=== PATIENT | female | born 1935 | race Caucasian/White ===

== ENCOUNTER 2019-12-01 18:02 | Emergency (ER) | payer MEDICARE, OTHER ==
[~2019-12-01] VITALS: Ht 152.4 cm; Wt 79.8 kg
[~2019-12-01 18:02] MED LIST: BACTRIM DS TAB1 EAC1 ORAL; KEFLEX500 MG ORAL; [UNRECOGNIZED DRUG - OTHER] PO
--- NOTE | 2019-12-01 18:18 | Emergency Room Report ---
History of Present Illness General Chief Complaint: Skin Rash/Abscess Source: Patient, Family Member, Medical Record Present Illness HPI Disclaimer: Please note that this report is being documented using [employer] technology. This can lead to erroneous entry secondary to incorrect interpretation by the dictating instrument. HPI: 84-year-old female history of A. fib and CAD presents for evaluation of right ankle pain and swelling. Patient noted pain, swelling and erythema beginning this morning. Cannot recall specific injury, fall, trauma, twisting motion or bite. She noticed a small puncture appearing wound over the anterior lateral portion of the right ankle and believes she may have been bitten by an insect but cannot recall a specific bite. Denies any history of prior injury to the right foot or ankle. Has had worsening pain throughout the day and difficulty bearing weight. She is walking with a limp but still able to bear some weight. No known medication allergies. No other complaints at this time. Denies fever, chills, sore throat, vomiting, diarrhea, shortness of breath, cough or chest pain. PMH: Atrial fibrillation, CAD PSH: Reviewed Allergies: None reported Social Hx: Denies Allergies: Coded Allergies: No Known Allergies (Verified Allergy, Unknown, 12/29/08) COVID-19 Screening Contact w/high risk pt: No Recent Travel to affected area: No Experienced COVID-19 symptoms?: No Nursing Documentation-PMH Hx Cardiac Problems: Yes Review of Systems All Other Systems: negative except mentioned in HPI Physical Exam Vital Signs Date Time Temp Pulse Resp B/P (MAP) Pulse Ox O2 Delivery O2 Flow Rate FiO2 12/01/19 18:12 99.5 111 16 134/69 (90) 95 Room Air General: Awake and alert, no acute distress HEENT: NC/AT. EOMI. Resp: Normal work of breathing Skin: Intact. No abrasions, laceration or rash over the exposed skin MSK: Normal tone and bulk. Moving all extremities. There is circumferential soft tissue swelling around the right ankle with a 1 x 1 cm slightly raised and erythematous portion but without fluctuance, skin breakdown, ulcerations, vesicles. There is some bony tenderness over the medial malleolus over the anterior and posterior aspect. The lateral malleolus is nontender. Able to dorsiflex and plantarflex without difficulty. Neuro: Awake and alert. Mentating appropriately Medical Decision Making Diagnostic Impression: Primary Impression: Cellulitis Additional Impression: Ankle pain ER Course 84-year-old female presents for pain and swelling of the right ankle of 1 day duration. Differential includes but not limited to cellulitis, arthritis, occult injury, sprain, strain, dislocation, fracture. While the patient's history and physical exam are most consistent with an insect bite of some kind or a superficial cellulitis bony tenderness prompted x-ray imaging to rule out occult injury. X-ray does not show acute fracture or dislocation. There are signs of osteoporosis. Will treat for superficial cellulitis with Keflex. Harry wrap was placed for comfort and stability. The patient will follow-up with PMD. Discussed reasons to return to the emergency department patient and her daughter. They understand agree with this treatment plan will be discharged home. Other X-Ray Diagnostic Results Other X-Ray Diagnostic Results : X-Ray ordered: Right ankle # of Views/Limited Vs Complete: Complete Indication: Pain EP Interpretation: Yes Interpretation: no dislocation, no soft tissue swelling, no fractures Impression: No acute disease Electronically Signed by: Electronically signed by Dr. Keo Perez Last Vital Signs Date Time Temp Pulse Resp B/P (MAP) Pulse Ox O2 Delivery O2 Flow Rate FiO2 12/01/19 18:12 99.5 111 16 134/69 (90) 95 Room Air Disposition: HOME, SELF-CARE Condition: Stable Scripts Cephalexin* (KEFLEX*) 500 Mg Capsule 500 MG ORAL EVERY 12 HOURS, #14 CAP 0 Refills Prov: Keo Perez MD 12/01/19 Keo Perez MD Dec 01, 2019 18:18
[2019-12-01 18:24] VITALS: BP 134/69
--- NOTE | 2019-12-01 18:26 | NUR ---
ED Nurse Note: Patient was BIB her daughter due to insect bite. Patient presented calm,AAO x4, HR 105, other VSS at this time.
[2019-12-01] MEDS ORDERED: CEPHALEXIN500 MG ORAL (18:46)
[2019-12-01 18:53] VITALS: BP 134/69
--- NOTE | 2019-12-01 18:53 | NUR ---
ED Nurse Note: Pt cleared by health care Provider for discharge. DC instructions/prescription was given and explained to pt and verbalized understanding of teachings. All medical deviecs such as ID band removed. Pt is AAO x4, ambulatory and left with all personal belongings.
--- NOTE | 2019-12-02 09:59 | Diagnostic Imaging Report ---
Indication: Ankle pain Technique: 3 views of the right ankle Comparison: none Findings: No acute fractures. No dislocations. The joint spaces are preserved. There is a plantar spur. Impression: No acute bony trauma
== END 2019-12-01 18:53 | disposition home or self-care (01) ==
LOC: EMR 18:45
DX: L03.115 Cellulitis of right lower limb (principal); M25.571 Pain in right ankle and joints of right foot; I25.10 Atherosclerotic heart disease of native coronary artery without angina pectoris
CPT/HCPCS: 99283